=== PATIENT | male | born 1955 | race Caucasian/White ===

== ENCOUNTER 2021-11-15 12:01 | Emergency (ER) | payer MEDICARE, OTHER ==
[2021-11-15] MEDS ORDERED: Benzocaine 20% Topical Spray UD MUCMEM ONE (12:26)
[2021-11-15] MEDS ORDERED: Lidocaine 2% Viscous Solution 15 ML UD PO ONE (12:26)
== END 2021-11-15 12:42 | disposition home or self-care (01) ==
LOC: MW.ED 12:01
DX: K04.7 Periapical abscess without sinus (principal); E66.9 Obesity, unspecified; Z68.31 Body mass index [BMI] 31.0-31.9, adult
CPT/HCPCS: 99282; A9270